=== PATIENT | female | born 1960 | race Caucasian/White ===

== ENCOUNTER → 2016-08-26 | Outpatient (CLI) | payer OTHER ==
[2015-12-07 11:05] VITALS: BP 106/69
[~2016-08-26] MED LIST: CYCL10TA2 PO; DICL75TA PO; DICY20TA30 PO; DIPH1TAB PO; ESTR0.5T PO; GABA-585 PO; HYDR-2672 PO; HYDR-2678 PO; HYDR-2680 PO; LEVO25TA2 PO; LEVO50TA PO; LORA0.5T96 PO; OMEP20CA5 PO; ONDA8TAB9 PO; OXYC1TAB7 PO; PARO10TA3 PO; POTA10CA PO; PRAV40TA PO; PROC10TA57 PO; PROP10TA PO; TIOT18CA IH; TOPI-24 PO; TOPI100T39 PO; ZOLP10TA PO
--- NOTE | 2016-08-26 16:20 | RAD ---
Radionuclide bone scan, 08/26/2016: History: Back and knee pain, breast cancer Serial body imaging was performed following IV injection of 22 mCi of technetium 99m MDP. No previous bone scan is available at this time for comparison purposes. The following findings are delineated: 1. Minimally increased activity at both patellofemoral levels is compatible with arthritis. 2. There is slightly increased activity in the upper lumbar spine at approximately L2 level. This is a nonspecific finding, which could be arthritic in nature. Correlation with radiographic and/or MR findings is suggested. 3. Activity of the radionuclide about the skeleton the major joints is otherwise unremarkable. No multifocal abnormalities are seen to suggest osseous metastatic disease.
== END | disposition home or self-care (01) ==
LOC: NM 07:02
PROVIDERS: ATTEND Internal Medicine Hematology & Oncology
DX: C50.512 Malignant neoplasm of lower-outer quadrant of left female breast (principal); M54.5 Low back pain; M25.561 Pain in right knee; M25.562 Pain in left knee; Z85.3 Personal history of malignant neoplasm of breast; R10.32 Left lower quadrant pain
CPT/HCPCS: 78306; 96374; A9503

== ENCOUNTER → 2016-09-16 | Outpatient (CLI) | payer OTHER ==
[2015-12-07 11:05] VITALS: BP 106/69
[~2016-09-16] MED LIST changes: +GADOBUTROL 7.5 MMOL/7.5 ML VIAL IV ONE
--- NOTE | 2016-09-16 09:33 | RAD ---
PROCEDURE MRI lumbar spine without and with contrast. HISTORY Low back pain with leg weakness, breast cancer TECHNIQUE Multiplanar, multi sequential pre and postcontrast image MR imaging was performed of the lumbar spine. Contrast: 5 cc Gadavist COMPARISON None FINDINGS There is old mild superior L2 endplate concavity and Schmorl's nodes, no osseous retropulsion. There is no significant marrow edema. There is no nodular enhancement of the conus or cauda equina, no enhancement of the intervertebral disc spaces. There is mild degenerative disc disease at L1-2, very mild disc desiccation L2-3. Conus terminates at L1. L1-L2: Spinal canal and neural foramina are adequate. L2-3: Spinal canal and neural foramina are adequate. There is a small hemangioma of the left L3 vertebral body. L3-4: There is minimal facet degenerative change and buckling of the ligamentum flavum. Neural foramina and spinal canal are adequate. L4-5: Spinal canal and neural foramina are adequate. L5-S1: Spinal canal and neural foramina are adequate. IMPRESSION 1. There is old superior L2 endplate compression deformity without osseous retropulsion. 2. There is no lumbar spinal stenosis or neural foraminal compromise. Electronically signed by: Theodore Cox MD (Sep 16, 2016 09:31:56)
== END | disposition home or self-care (01) ==
LOC: MRI 08:31
PROVIDERS: ATTEND Internal Medicine Hematology & Oncology
DX: C50.512 Malignant neoplasm of lower-outer quadrant of left female breast (principal); M54.5 Low back pain
CPT/HCPCS: 72158; A9585

== ENCOUNTER → 2016-09-24 | Outpatient (CLI) | payer OTHER ==
[2015-12-07 11:05] VITALS: BP 106/69
[~2016-09-24] MED LIST changes: -GADOBUTROL 7.5 MMOL/7.5 ML VIAL IV ONE
--- NOTE | 2016-09-24 17:07 | CARD ---
APPROVED REPORT EXAM: Two-dimensional and M-mode echocardiogram with Doppler and color Doppler. Other Information Quality : GoodHR: 62bpm Rhythm : NSR INDICATION LV Function:Systolic Breast cancer, Chemo treatment 2D DIMENSIONS IVSd0.7 (0.7-1.1cm)LVDd3.8 (3.9-5.9cm) PWd0.7 (0.7-1.1cm)LVDs2.8 (2.5-4.0cm) FS (%) 25.5 %SV31.0 ml LVEF(%)51.0 (>50%) LEFT VENTRICLE The left ventricle is normal size. There is normal left ventricular wall thickness. The left ventricu lar systolic function is normal and the ejection fraction is within normal range. The Ejection Fracti on is 55%. Stable global longitudinal strain suggestive of intact myofibril contractility. There is n ormal LV segmental wall motion. Left ventricular diastolic function was not assessed. RIGHT VENTRICLE The right ventricle is normal size. There is normal right ventricular wall thickness. The right ventr icular systolic function is normal. ATRIA The left atrium size is normal. The right atrium size is normal. The atrial septum was not assessed. AORTIC VALVE There is no significant aortic valvular stenosis. MITRAL VALVE There is no mitral valve stenosis. TRICUSPID VALVE There is no tricuspid valve stenosis. PULMONIC VALVE The pulmonic valve was not assessed. GREAT VESSELS The aortic root is normal in size. The ascending aorta is normal in size. The IVC was not assessed. PERICARDIAL EFFUSION There is no evidence of significant pericardial effusion. Critical Notification Critical Value: No <Conclusion> The left ventricular systolic function is normal and the ejection fraction is within normal range. Th e Ejection Fraction is 55%. Stable global longitudinal strain suggestive of intact myofibril contract ility.
== END | disposition home or self-care (01) ==
LOC: ECHO 10:31
PROVIDERS: ATTEND Internal Medicine Hematology & Oncology
DX: C50.512 Malignant neoplasm of lower-outer quadrant of left female breast (principal); I50.1 Left ventricular failure, unspecified
CPT/HCPCS: 93308

== ENCOUNTER → 2016-11-01 | Outpatient (CLI) | payer OTHER ==
[2015-12-07 11:05] VITALS: BP 106/69
[~2016-11-01] MED LIST changes: -LEVO25TA2 PO; +LEVO25TA55 PO
--- NOTE | 2016-11-01 10:31 | RAD ---
DATE: 11/01/2016 EXAM: DIGITAL DIAGNOSTIC LT, BREAST LEFT HISTORY: Previous left breast cancer COMPARISON: 05/01/2016 This study was interpreted with the benefit of Computerized Aided Detection (CAD). FINDINGS: The left breast is heterogeneously dense. There is mild skin distortion medially apparently on a postsurgical basis. No new or enlarging breast densities are seen. There are small benign-appearing lymph node type densities in the left axilla. These appear to be unchanged. Minimal benign type calcification is present in the left breast. No suspicious microcalcifications have developed. Left breast ultrasound, 11/01/2016: A targeted ultrasound exam was performed centered at the 12:30 location and in the left axilla, where suspicious areas were seen on a study from 05/01/2016. These could not be redemonstrated on 05/17/2016. Today's scans demonstrate normal heterogeneous fibroglandular shadows. No cystic or solid mass is seen. IMPRESSION: Stable left mammograms without evidence of malignancy. Follow-up bilateral mammography in 6 months is suggested. BI-RADS CATEGORY: 2 BENIGN FINDING(S) RECOMMENDED FOLLOW-UP: 12M 12 MONTH FOLLOW-UP PQRS compliance statement: Patient information was entered into a reminder system with a target due date for the next mammogram. Mammography is a sensitive method for finding small breast cancers, but it does not detect them all and is not a substitute for careful clinical examination. A negative mammogram does not negate a clinically suspicious finding and should not result in delay in biopsying a clinically suspicious abnormality. "Our facility is accredited by the [employer] Mammography Program."
== END | disposition home or self-care (01) ==
LOC: MAMMO 10-09 09:58
PROVIDERS: ATTEND Internal Medicine Hematology & Oncology
DX: R92.8 Other abnormal and inconclusive findings on diagnostic imaging of breast (principal); C50.512 Malignant neoplasm of lower-outer quadrant of left female breast; Z85.3 Personal history of malignant neoplasm of breast
CPT/HCPCS: 76641; G0206; 77065

== ENCOUNTER → 2017-05-06 | Outpatient (CLI) | payer OTHER ==
[2015-12-07 11:05] VITALS: BP 106/69
[~2017-05-06] MED LIST changes: +ATOR20TA58 PO; -HYDR-2672 PO; +HYDR-2766 PO; -POTA10CA PO; +POTASSIUM CHLO10 MEQ PO; +TAMO20TA PO; -TOPI-24 PO; -TOPI100T39 PO; +TOPI100T42 PO; +TOPI25TA7 PO
--- NOTE | 2017-05-06 14:17 | RAD ---
DATE: 12/04/2016 EXAM: DIGITAL DIAGNOSTIC BILATERAL HISTORY: Previous left breast cancer COMPARISON: 11/01/2016, 05/01/2016, 04/17/2015 This study was interpreted with the benefit of Computerized Aided Detection (CAD). The breast parenchyma is heterogeneously dense, which could reduce sensitivity of mammography. Breast parenchyma level C. FINDINGS: There is a small smooth nodule in the posterolateral aspect of the right breast which is unchanged. This is probably a benign intramammary lymph node. An old breast biopsy marker is again noted in the right breast. There is mild unchanged breast distortion inferiorly medially on the left compatible with previous surgery. No new or enlarging breast densities are seen. Benign type calcifications are present. No suspicious microcalcifications have developed. Small lymph nodes are again noted in both axillary regions. On an exaggerated cc view of the left breast, a 9 mm nodule with faint microcalcifications is present posterolaterally. It is unchanged since 05/01/2016. It was not visible on the 11/01/2016 study apparently due to differences in patient positioning. No definite enlarging axillary lymph nodes are seen. IMPRESSION: 1. Stable breast findings as described above. 2. A small left axillary lymph node containing microcalcifications is currently visualized, unchanged since 05/01/2016. This node is only intermittently visualized due to its posterior location. This may be a benign node or a quiescent metastasis. In view of this finding and previous nonreproducible ultrasound findings, MR scanning may be useful for further evaluation. BI-RADS CATEGORY: 0 INCOMPLETE: NEEDS ADDITIONAL IMAGING EVALUATION AND/OR PRIOR MAMMOGRAMS FOR COMPARISON. RECOMMENDED FOLLOW-UP: ADD ADDITIONAL IMAGING PQRS compliance statement: Patient information was entered into a reminder system with a target due date for the next mammogram. Mammography is a sensitive method for finding small breast cancers, but it does not detect them all and is not a substitute for careful clinical examination. A negative mammogram does not negate a clinically suspicious finding and should not result in delay in biopsying a clinically suspicious abnormality. "Our facility is accredited by the [employer] Mammography [employer]."
== END | disposition home or self-care (01) ==
LOC: MAMMO 12:56
PROVIDERS: ATTEND Surgery
DX: Z12.31 Encounter for screening mammogram for malignant neoplasm of breast (principal); Z85.3 Personal history of malignant neoplasm of breast
CPT/HCPCS: G0204; 77066

== ENCOUNTER → 2017-10-01 | Outpatient (CLI) | payer OTHER ==
[2017-10-01] MEDS: GADOBUTROL 7.5 MMOL/7.5 ML VIAL IV (10:31)
== END | disposition home or self-care (01) ==
LOC: MRI 09:22
DX: M51.36 Other intervertebral disc degeneration, lumbar region (principal); M43.8X5 Other specified deforming dorsopathies, thoracolumbar region; M47.896 Other spondylosis, lumbar region
CPT/HCPCS: 72158; A9585

== ENCOUNTER → 2017-10-02 | Outpatient (CLI) | payer OTHER | END | disposition home or self-care (01) | LOC: NM 10:07 | DX: C50.512 Malignant neoplasm of lower-outer quadrant of left female breast (principal); M89.8X8 Other specified disorders of bone, other site; Z17.0 Estrogen receptor positive status [ER+] | CPT/HCPCS: 78306; 96374; A9503 ==

== ENCOUNTER → 2017-10-31 | Outpatient (CLI) | payer OTHER | END | disposition home or self-care (01) | LOC: MAMMO 12:20 | DX: R92.8 Other abnormal and inconclusive findings on diagnostic imaging of breast (principal) | CPT/HCPCS: 77065 ==

== ENCOUNTER → 2018-05-04 | Outpatient (CLI) | payer OTHER ==
[2015-12-07 11:05] VITALS: BP 106/69
[~2018-05-04] MED LIST changes: +ALEN70TA3 PO; +GABA-586 PO; +POTA10TA12 PO; -POTASSIUM CHLO10 MEQ PO
--- NOTE | 2018-05-04 11:23 | RAD ---
DATE: 05/04/2018 EXAM: MAMMO MARIALUISA MARKUS HESS HISTORY: Six-month follow-up. History of left breast cancer. COMPARISON: Previous mammogram from 2016 and 2016 This study was interpreted with the benefit of Computerized Aided Detection (CAD). FINDINGS: Breast Density: HETERO The breast parenchyma Is heterogeneously dense, which could reduce sensitivity of mammography. Breast parenchyma level C. Post surgical changes are seen in the left inferomedial breast with no abnormal calcifications, spiculated mass. Area of architectural distortion is seen most likely from prior surgery. Stable oval-shaped nodule most likely and intramammary lymph node in the upper outer quadrant of the right breast. Stable central round lesion with central biopsy clip dating back to 05/01/2016. No new suspicious calcifications, spiculated mass. Stable benign-appearing calcifications in the upper aspect of the left breast, nonspecific. IMPRESSION: Postsurgical changes in the left inferomedial breast with surrounding architectural distortion. No suspicious mammographic abnormality. BI-RADS CATEGORY: 2 BENIGN FINDING(S) RECOMMENDED FOLLOW-UP: 12M 12 MONTH FOLLOW-UP PQRS compliance statement: Patient information was entered into a reminder system with a target due date for the next mammogram. Mammography is a sensitive method for finding small breast cancers, but it does not detect them all and is not a substitute for careful clinical examination. A negative mammogram does not negate a clinically suspicious finding and should not result in delay in biopsying a clinically suspicious abnormality. "Our facility is accredited by the [employer] Mammography Program."
== END | disposition home or self-care (01) ==
LOC: MAMMO 10:26
PROVIDERS: ATTEND Surgery
DX: R92.8 Other abnormal and inconclusive findings on diagnostic imaging of breast (principal); Z98.890 Other specified postprocedural states; Z85.3 Personal history of malignant neoplasm of breast
CPT/HCPCS: 77066; G0279; 77062

== ENCOUNTER → 2019-05-05 | Outpatient (CLI) | payer BC, OTHER ==
[2015-12-07 11:05] VITALS: BP 106/69
[~2019-05-05] MED LIST changes: -GABA-586 PO; +GABA300C18 PO; -HYDR-2766 PO; +HYDR-2769 PO
--- NOTE | 2019-05-05 10:02 | RAD ---
DATE: 05/05/2019 9:24 AM EXAM: MAMMO MARIALUISA DIAYesenia BILAT HISTORY: Diagnostic bilateral breast mammograms. History of left breast cancer. Status post lumpectomy. COMPARISON: May 04, 2018 Bilateral CC and MLO views of the breasts were performed. Bilateral breast tomosynthesis was performed in CC and MLO projections. This study was interpreted with the benefit of Computerized Aided Detection (CAD). FINDINGS: Breast Density: HETERO The breast parenchyma Is heterogeneously dense, which could reduce sensitivity of mammography. Breast parenchyma level C Left breast lumpectomy changes, unchanged. Left breast axillary lymph node with microcalcifications, unchanged. Right breast mass with biopsy clip, unchanged. No new suspicious masses, microcalcifications or architectural distortion is present to suggest malignancy in either breast. The visualized axillae are unremarkable. IMPRESSION: Left breast lumpectomy changes, unchanged. Left axillary lymph node with microcalcifications, unchanged. Right breast mass status post biopsy, unchanged. BI-RADS CATEGORY: 2 BENIGN FINDING(S) RECOMMENDED FOLLOW-UP: 12M 12 MONTH FOLLOW-UP Annual screening mammography is recommended, unless clinically indicated sooner based on symptoms or change in physical exam. PQRS compliance statement: Patient information was entered into a reminder system with a target due date one year for the next mammogram. Mammography is a sensitive method for finding small breast cancers, but it does not detect them all and is not a substitute for careful clinical examination. A negative mammogram does not negate a clinically suspicious finding and should not result in delay in biopsying a clinically suspicious abnormality. "Our facility is accredited by the [employer] Mammography [employer]."
== END | disposition home or self-care (01) ==
LOC: MAMMO 09:21
PROVIDERS: ATTEND Surgery
DX: R92.1 Mammographic calcification found on diagnostic imaging of breast (principal); Z85.3 Personal history of malignant neoplasm of breast
CPT/HCPCS: 77066; G0279; 77062

== ENCOUNTER → 2019-06-11 | Outpatient (CLI) | payer BC, OTHER ==
[2015-12-07 11:05] VITALS: BP 106/69
--- NOTE | 2019-06-11 17:12 | RAD ---
Whole body bone scan Clinical indications: Left breast cancer in 2015. Treatment with surgery and radiation therapy and chemotherapy. COMPARISON: October 02, 2017. TECHNIQUE: After IV infusion of 25 mCi of technetium 99m MDP, delayed anterior and posterior planar images of the whole body were performed. FINDINGS: Bilateral renal function is seen. Degenerative activity is seen involving both knees and both feet and both wrists. There is a focus of activity seen involving the right sternoclavicular joint which is new. No other new areas of osseous uptake are seen. IMPRESSION: New finding of osseous uptake involving the right sternoclavicular joint. Although this may be due to degenerative osteoarthritis here, since this is a new finding, recommend dedicated CT through this area to exclude osseous metastatic lesion. No osseous metastatic disease is seen elsewhere. Electronically signed by: Antonio Low MD (06/11/2019 5:09 PM) [facility]
== END | disposition home or self-care (01) ==
LOC: NM 07:26
PROVIDERS: ATTEND Internal Medicine Hematology & Oncology
DX: C50.512 Malignant neoplasm of lower-outer quadrant of left female breast (principal); Z17.0 Estrogen receptor positive status [ER+]
CPT/HCPCS: 78306; A9503

== ENCOUNTER → 2019-06-16 | Outpatient (CLI) | payer BC, OTHER ==
[2015-12-07 11:05] VITALS: BP 106/69
[~2019-06-16] MED LIST changes: +GADOTERATE 7.5 MMOL/15ML VIAL. IVP ONE; +IOHEXOL 240 MG/ML 50ML VIAL. PO ONE; +IOHEXOL 300 MG/ML 100ML VIAL. IV ONE
--- NOTE | 2019-06-16 13:05 | RAD ---
BRAIN WO/W CONTRAST History: Headache. Breast cancer history. Technique: Multiplanar, multi sequential pre and postcontrast MR imaging was performed of the brain. Comparison: None Findings: No acute infarct. No intracranial hemorrhage. No mass effect. No hydrocephalus. Extra-axial spaces are unremarkable. No pathologic enhancement. Mild scattered foci of T2/FLAIR hyperintensities within the hemispheric white matter, most often due to chronic microvascular ischemia. Imaged orbits are unremarkable. Minimal right medial ethmoid sinus mucosal thickening. Mastoid air cells are clear. Impression: 1. No acute intracranial abnormality. No evidence of metastatic disease. 2. Mild sequela chronic microvascular ischemia. Electronically signed by: Yazan Suárez DO (06/16/2019 1:02 PM) [id number]
--- NOTE | 2019-06-16 17:36 | RAD ---
Examination: CT CHEST ABD PELVIS W/CONTRAST History: Breast cancer Comparison/Correlation: 06/11/2019 whole-body bone scan Findings: Axial images of the chest, abdomen, and pelvis were obtained following IV contrast. Sagittal and coronal reformatted images were provided. Oral contrast was administered. Mild distortion involving the left medial upper breast is present with skin infection on axial image 35 of series 2. Correlate with history of breast cancer. No enlarged thoracic lymph nodes. Small hiatal hernia is present. No pleural or pericardial effusion. The anterior left mid thoracic level, pleural thickening is noted with linear scarring extending from the left hilum to this region of pleural thickening. Correlate with radiation therapy history. Liver, spleen, pancreas, adrenal glands, and kidneys are unremarkable. No ascites or pelvic free fluid. No enlarged abdominal or pelvic lymph nodes. No inflammatory change about the cecum. The gallbladder fossa is unremarkable. Bladder is unremarkable. Hysterectomy noted. L2 superior endplate compression deformity noted. Subchondral sclerosis noted at this level. Impression: Left anterior midthoracic to basilar pleural thickening noted. Linear scarring involving the lingula is noted. Correlate with radiation therapy history. Distortion involving the left upper inner breast. Correlate with history of surgical history and treatment. Small hiatal hernia is present. No enlarged lymph nodes or masses. L2 superior endplate compression fracture deformity of indeterminate age. PQRS Compliance Statement: One or more of the following individualized dose reduction techniques were utilized for this examination: 1. Automated exposure control 2. Adjustment of the mA and/or kV according to patient size 3. Use of iterative reconstruction technique Electronically signed by: Julio Tyson MD (06/16/2019 5:32 PM) [facility] [place]
== END | disposition home or self-care (01) ==
LOC: MRI 09:56
PROVIDERS: ATTEND Internal Medicine Hematology & Oncology
DX: K44.9 Diaphragmatic hernia without obstruction or gangrene (principal); J34.89 Other specified disorders of nose and nasal sinuses; J92.9 Pleural plaque without asbestos; J98.4 Other disorders of lung; M48.56XA Collapsed vertebra, not elsewhere classified, lumbar region, initial encounter for fracture; G93.89 Other specified disorders of brain; C50.512 Malignant neoplasm of lower-outer quadrant of left female breast; F17.200 Nicotine dependence, unspecified, uncomplicated; Z17.0 Estrogen receptor positive status [ER+]; Z90.710 Acquired absence of both cervix and uterus
CPT/HCPCS: 70553; 71260; 74177; A9575; Q9966; Q9967

== ENCOUNTER 2019-09-30 14:18 | Emergency (ER) | payer BC, OTHER ==
[~2019-09-30] VITALS: Ht 157.5 cm; Wt 63.0 kg
[~2019-09-30 14:18] MED LIST changes: -GADOTERATE 7.5 MMOL/15ML VIAL. IVP ONE; -IOHEXOL 240 MG/ML 50ML VIAL. PO ONE; -IOHEXOL 300 MG/ML 100ML VIAL. IV ONE
[2019-09-30 15:21] LABS: INFLUENZA A PATIENT NEGATIVE (NEGATIVE)
[2019-09-30 15:23] LABS: INFLUENZA B PATIENT POSITIVE (NEGATIVE)
--- NOTE | 2019-09-30 15:26 | RAD ---
CHEST AP ONLY Clinical indications: Breast Cancer. COMPARISON: Chest x-ray dated December 09, 2017. Findings: No acute lung infiltrate or pleural effusion or pulmonary edema or lung mass or pneumothorax is seen. The heart size, pulmonary vasculature, mediastinum and both xochitl are unremarkable. Impression: No acute radiographic abnormality is seen. Electronically signed by: Antonio Low MD (09/30/2019 3:24 PM) [id number]
[2019-09-30] MEDS ORDERED: COVID 19 test (15:37)
[2019-09-30] MEDS ORDERED: BENZ100C PO (15:37)
--- NOTE | 2019-09-30 15:37 | PHYS DOC ---
Past Medical History Past Medical History: Cancer, Hypothyroid Additional Past Medical Histor: ALOPESIA Past Surgical History: Other Additional Past Surgical Histo: TEETH REMOVAL, BIOPSY OF BREAST AND THYROID Smoking Status: Former Smoker Alcohol Use: None Drug Use: None Adult General Chief Complaint Chief Complaint: SHORTNESS OF BREATH HPI HPI Patient is a 58 year old female with history of hypothyroidism, alopecia, who presents with complaint of fever and cough and shortness of breath. Patient complaining of myalgia, sore throat, nasal congestion fever up to 104, nonproductive cough and shortness of breath, headache and 3 episodes of vomi ting, not feeling good for the last 5 days. Patient states she had contact with some coworker who was in contact with positive COVID - 19 patient and called her primary care physician office today who recommended come to ER for evaluation. Patient denies chest pain, focal neuro deficit, blurred vision. Review of Systems Review of Systems Constitutional: Reports fever and chills [] Eyes: Denies change in visual acuity, redness, or eye pain [] HENT: Reports nasal congestion and sore throat Respiratory: Reports cough and shortness of breath Cardiovascular: No additional information not addressed in HPI [] GI: Denies abdominal pain, bloody stools or diarrhea [] : Denies dysuria or hematuria [] Musculoskeletal: Denies back pain or joint pain [] Integument: Denies rash or skin lesions [] Neurologic: Denies headache, focal weakness or sensory changes [] Endocrine: Denies polyuria or polydipsia [] All other systems were reviewed and found to be within normal limits, except as documented in this note. Allergies Allergies Allergies Coded Allergies Type Severity Reaction Last Updated Verified Penicillins Allergy Severe Swelling 01/01/16 Yes aspirin Allergy Intermediate Nausea and Vomiting 01/01/16 Yes tramadol Allergy Intermediate Nausea and Vomiting 01/01/16 Yes Physical Exam Physical Exam Constitutional: Well developed, well nourished, mild distress, non-toxic appearance, afebrile after taking Tylenol today. [] HENT: Normocephalic, atraumatic, bilateral external ears normal, oropharynx moist, no oral exudates, nose normal. [] Eyes: PERRLA, EOMI, conjunctiva normal, no discharge. [] Neck: Normal range of motion, no tenderness, supple, no stridor. [] Cardiovascular:Heart rate regular rhythm, no murmur [] Lungs & Thorax: Bilateral breath sounds clear to auscultation [] Abdomen: Bowel sounds normal, soft, no tenderness, no masses, no pulsatile masses. [] Skin: Warm, dry, no erythema, no rash. [] Back: No tenderness, no CVA tenderness. [] Extremities: No tenderness, no cyanosis, no clubbing, ROM intact, no edema. [] Neurologic: Alert and oriented X 3, normal motor function, normal sensory function, no focal deficits noted. [] Psychologic: Affect normal, judgement normal, mood normal. [] Current Patient Data Vital Signs Vital Signs Date Time Temp Pulse Resp B/P (MAP) Pulse Ox O2 Delivery O2 Flow Rate FiO2 09/30/19 16:00 106 18 118/74 (89) 97 Room Air 09/30/19 15:03 98.5 98.5 Lab Values Laboratory Tests Test 09/30/19 14:45 09/30/19 14:54 Influenza Type A Antigen Negative (NEGATIVE) Influenza Type B Antigen Positive (NEGATIVE) Group A Streptococcus Rapid Negative (NEGATIVE) EKG EKG [] Radiology/Procedures Radiology/Procedures [facility] [address] [place] [address] IMAGING REPORT Signed PATIENT: JOSE L JACQUES ACCOUNT: [id number] : 1960 LOCATION: ER AGE: 58 SEX: F EXAM STATUS: REG ER ORD. PHYSICIAN: MARLENI MANCILLA MD REASON: [email or web address] PROCEDURE: CHEST AP ONLY CHEST AP ONLY Clinical indications: Breast Cancer. COMPARISON: Chest x-ray dated December 09, 2017. Findings: No acute lung infiltrate or pleural effusion or pulmonary edema or lung mass or pneumothorax is seen. The heart size, pulmonary vasculature, mediastinum and both xochitl are unremarkable. Impression: No acute radiographic abnormality is seen. Electronically signed by: Liza Low MD (09/30/2019 3:24 PM) [id number] DICTATED and SIGNED BY: LIZA LOW MD DATE: 09/30/19 1524 Course & Med Decision Making Course & Med Decision Making Pertinent Labs and Imaging studies reviewed. (See chart for details) Evaluation of patient in ER showed 58-year-old female patient with URI symptoms with concern for coronavirus infection. Patient had positive influenza B and was advised to quarantine herself until getting the test results for pearson virus infection. Patient was advised to follow-up with her primary care physician in 2 to 3 days. I've spoken with the patient and/or caregivers. I've explained the patient's condition, diagnosis and treatment plan based on information available to me at this time. I've answered the patient's and/or caregivers questions and addressed any concerns. The patient and/or caregivers have a good understanding the patient's diagnosis, condition and treatment plan as can be expected at this point. Vital signs have been stabilized. The patient's condition is stable for discharge from the emergency department. The patient will pursue further outpatient evaluation with her primary care provider or other designated consulting physician as outlined in the discharge instructions. Patient and/or caregivers are agreeable to this plan of care and follow-up instructions have been explained in detail. The patient and/or caregivers have received these instructions in written format and expressed understanding of these discharge instructions. The patient and her caregivers are aware that if any significant change in condition or worsening of symptoms should prompt him to immediately return to this of the closest emergency department. If an emergent department is not readily available I would encourage him to call 911. [place] Disclaimer Dragon Disclaimer This electronic medical record was generated, in whole or in part, using a voice recognition dictation system. Departure Departure Impression: Primary Impression: Influenza B Additional Impression: Suspected 2019 novel coronavirus infection Disposition: HOME, SELF-CARE (At 1532) Condition: STABLE Referrals: IRMA FRANKLIN MD (PCP) Patient Instructions: Cough, Adult, Influenza, Adult Additional Instructions: Drink plenty of liquids Follow-up with your primary care physician in 2-3 days Return to ER if not getting better You can have coronavirus test at [facility] located at [address] [facility] in the [facility] Continue home inhaler Quarantine your self at home until having the test results Thank you for visiting [facility]. We appreciate you trusting us with your care. If any additional problems come up don't hesitate to return to visit us. Please follow up with your primary care provider so they can plan additional care if needed and know about the problem that you had. If symptoms worsen come back to the Emergency Department. Any concerning symptoms that start such as chest pain, shortness of air, weakness or numbness on one side of the body, running high fevers or any other concerning symptoms return to the ER. Scripts [COVID 19 test] No Conflict Check Prov: MARLENI MANCILLA MD 09/30/19 Benzonatate (TESSALON PERLE) 100 Mg Capsule 1 CAP PO TID for cough, #21 CAP Prov: MARLENI MANCILLA MD 09/30/19 Problem Qualifiers MARLENI MANCILLA MD Sep 30, 2019 15:37
[2019-09-30 16:00] VITALS: BP 118/74
== END 2019-09-30 16:08 | disposition home or self-care (01) ==
LOC: ER 14:18
DX: J10.1 Influenza due to other identified influenza virus with other respiratory manifestations (principal); R06.02 Shortness of breath; R50.9 Fever, unspecified; R05 Cough; L65.9 Nonscarring hair loss, unspecified; E03.9 Hypothyroidism, unspecified; Z88.0 Allergy status to penicillin; Z85.9 Personal history of malignant neoplasm, unspecified; Z98.890 Other specified postprocedural states; Z87.891 Personal history of nicotine dependence; Z88.6 Allergy status to analgesic agent
CPT/HCPCS: 71045; 87070; 87804; 87880; 99284

== ENCOUNTER → 2020-05-03 | Outpatient (CLI) | payer BC, OTHER ==
[~2020-05-03] MED LIST changes: +BENZ100C PO; +COVID 19 test
--- NOTE | 2020-05-03 10:33 | RAD ---
EXAMINATION: MAMMO [facility] DIAG BILAT History: HX OF LEFT BREAST CANCER 2015 /no current signs or symptoms. Comparison: 05/05/2019, 1018, 05/06/2017, 05/01/2016. Technique: Bilateral digital diagnostic mammogram views were obtained. CAD was utilized. 3-D tomosynthesis images were acquired. Findings: Breast Tissue Density B : There are scattered areas of fibroglandular density. There are no dominant masses, suspicious microcalcifications, or architectural distortion. Right-sided biopsy clip marker. The left lower inner breast distortion is similar to previous exam in this postlumpectomy patient. IMPRESSION: No mammographic evidence of malignancy. Recommend routine screening. BI-RADS category 1: Negative. The images were reviewed with computer aided detection. Patient information is entered into the reminder system with a target due date for the next screening mammogram. Mammography is the most sensitive method for finding small breast cancers, but it does not detect them all and is not a substitute for careful clinical examination. A negative mammogram does not negate a clinically suspicious finding and should not result in delay in biopsying a clinically suspicious abnormality. "Our facility is accredited by the [employer] Mammography Program." Electronically signed by: Julio Tyson MD (05/03/2020 10:30 AM) [email or web address]
== END ==
LOC: MAMMO 09:35
PROVIDERS: ATTEND Surgery
DX: R92.2 Inconclusive mammogram (principal); Z85.3 Personal history of malignant neoplasm of breast
CPT/HCPCS: 77066; G0279; 77062

== ENCOUNTER → 2020-05-11 | Outpatient (CLI) | payer BC, OTHER ==
--- NOTE | 2020-05-11 16:40 | RAD ---
EXAM: Chest, single view. HISTORY: Clavicle pain. Breast cancer. COMPARISON: CT dated 06/16/2019. FINDINGS: A frontal view of the chest is obtained. There is no infiltrate, pleural effusion or pneumothorax. The heart is normal in size. No osseous lesion is seen radiographically. IMPRESSION: No acute pulmonary finding. Electronically signed by: Lola Simpson MD (05/11/2020 4:37 PM) [id number]
== END ==
LOC: RAD 15:52
PROVIDERS: ATTEND Surgery
DX: M25.519 Pain in unspecified shoulder (principal); M25.511 Pain in right shoulder; Z85.3 Personal history of malignant neoplasm of breast
CPT/HCPCS: 71045

== ENCOUNTER → 2021-02-20 | Outpatient (CLI) | payer BC, OTHER ==
--- NOTE | 2021-02-21 08:18 | RAD ---
INDICATION: 60 years female presents for further evaluation of the region of palpable abnormality in the left breast. TECHNIQUE: Full field craniocaudal and mediolateral oblique images of both breasts were obtained usi ng digital technique and analyzed with computer-aided detection software. Targeted high resolution so nography of the region of concern was also performed. COMPARISON: 05/03/2020 BREAST COMPOSITION: There are scattered areas of fibroglandular density. FINDINGS: No significant masses, suspicious calcifications, or other findings suggestive of malignancy. Postsur gical changes left breast. No sonographic correlate for the patient's clinical complaint. IMPRESSION: No evidence of malignancy. RECOMMENDATION: Clinical management of the patient's reported palpable area of concern is recommended based on followup physical examination and assessment. In the absence of new clinical symptoms or ch jose luis in physical exam, annual screening mammography is recommended BI-RADS 2: Benign Electronically signed by: Kedar Purcell MD (02/21/2021 8:16 AM) [email or web address]
== END ==
LOC: MAMMO 12:30
PROVIDERS: ATTEND Internal Medicine Hematology & Oncology
DX: N63.20 Unspecified lump in the left breast, unspecified quadrant (principal)
CPT/HCPCS: 76641; 77066

== ENCOUNTER → 2021-02-20 | Outpatient (CLI) | payer OTHER ==
--- NOTE | 2021-02-20 13:37 | RAD ---
Examination: LEFT LOWER EXTREMITY - UNILATERAL VENOUS DOPPLER Technique: Ultrasound evaluation of the left lower extremity was performed from the groin to the uppe r calf with salas scale, spectral and color doppler evaluation. Indication: Leg swelling Comparison: None Findings: There is normal venous flow and compressibility of left common femoral vein, femoral vein, popliteal vein, and visualized proximal calf veins. Impression: No evidence for deep vein thrombosis of left lower extremity from the level of the calf v eins to the groins. Electronically signed by: Kedar Purcell MD (02/20/2021 1:35 PM) [email or web address]
== END ==
LOC: US 12:13
PROVIDERS: ATTEND Family Medicine
DX: M79.662 Pain in left lower leg (principal)
CPT/HCPCS: 93971